=== PATIENT | female | born 1995 | race Caucasian/White ===

== ENCOUNTER → 2021-06-02 | Outpatient (CLI) | payer OTHER ==
[~2021-06-02] MED LIST: KEFLEX CAP 500500 MG PO; LODINE CAP 300300 MG PO; MAGOX 400400 MG PO; NAPROSYN500 MG PO; NORFLEX 100 MG100 MG PO; ZANTAC150 MG PO
== END ==
LOC: US 09:00
DX: R10.11 Right upper quadrant pain (principal); K80.20 Calculus of gallbladder without cholecystitis without obstruction
CPT/HCPCS: 76705